=== PATIENT | male | born 1995 | race African-American/Black ===

== ENCOUNTER 2024-10-09 11:38 | Emergency (ER) | payer OTHER ==
[~2024-10-09] VITALS: Ht 172.7 cm; Wt 66.0 kg
[2024-10-09 11:46] VITALS: O2SAT 100
[2024-10-09] MEDS ORDERED: IBUP-2028 MT (13:56)
[2024-10-09] MEDS: ACETAMINOPHEN 325MG TABLET PO ONE (14:01)
[2024-10-09 14:02] VITALS: BP 131/76; PULSE 87; RESP 18; TEMP 36.83628; O2SAT 100
== END 2024-10-09 14:11 | disposition home or self-care (01) ==
LOC: ER 11:38
DX: S93.402A Sprain of unspecified ligament of left ankle, initial encounter (principal); Z90.89 Acquired absence of other organs; Y04.0XXA Assault by unarmed brawl or fight, initial encounter; Y93.89 Activity, other specified; Y92.89 Other specified places as the place of occurrence of the external cause; Y99.8 Other external cause status
CPT/HCPCS: 73630; 99283